=== PATIENT | female | born 1955 | race Hispanic/Latino ===

== ENCOUNTER 2024-12-12 06:18 | Day surgery (SDC) | payer MEDICARE ==
[~2024-12-12] VITALS: Ht 154.9 cm; Wt 67.6 kg
[2024-12-12] VITALS (9 sets, daily range): BP systolic 94–134; BP diastolic 46–63; PULSE 55–79; RESP 13–17; TEMP 97–97.7
[~2024-12-12 06:18] MED LIST: ROVASTATIN PO
[2024-12-12] MEDS: 0.9%NACL 1000ML 1,000 ML IV ONE (07:19)
[2024-12-12] MEDS ORDERED: proPOFol 10 MG/ML 20ML VIAL IV ONE (08:53)
--- NOTE | 2024-12-12 10:11 | NUR ---
Full and complete discharge instructions given to Patient and Family both verbally and in writing. Explained GI procedure precautions and follow up. All questions answered. PIV removed with catheter tip intact. Home with Family W/C to POV.
== END 2024-12-12 10:10 | disposition home or self-care (01) ==
LOC: ENDO 06:18 → DAH 06:18 → ENDO 10:10
PROVIDERS: ATTEND Internal Medicine Gastroenterology
DX: Z12.11 Encounter for screening for malignant neoplasm of colon (principal); D12.3 Benign neoplasm of transverse colon; D12.4 Benign neoplasm of descending colon; K57.30 Diverticulosis of large intestine without perforation or abscess without bleeding; K64.0 First degree hemorrhoids; Z86.0100 Personal history of colon polyps, unspecified; Z90.49 Acquired absence of other specified parts of digestive tract; Z90.710 Acquired absence of both cervix and uterus; Z90.89 Acquired absence of other organs; Z98.42 Cataract extraction status, left eye; Z98.41 Cataract extraction status, right eye; Z79.899 Other long term (current) drug therapy
CPT/HCPCS: 45385; 00812; J7030 ×2; J2704; A4215 ×2; A4223; A4222; A4221; A4663; A4606; J3490